=== PATIENT | male | born 1965 | race Caucasian/White ===

== ENCOUNTER 2019-06-27 22:34 | Emergency (ER) | payer MEDICAID, OTHER ==
[~2019-06-27] VITALS: Ht 167.6 cm; Wt 74.2 kg
[2019-06-27 22:53] VITALS: Ht 167.6 cm; Wt 74.2 kg
[2019-06-27] MEDS ORDERED: SOD CHLORIDE 0.9% 1,000 ML IV STA (23:49)
[2019-06-28] MEDS ORDERED: LACTATED RINGER'S 740 ML IV ONE (01:00)
[2019-06-28 03:00] VITALS: BP 136/70; PULSE 70; RESP 16
== END 2019-06-28 03:00 | disposition left against medical advice (07) ==
LOC: E/R 22:34
DX: E11.9 Type 2 diabetes mellitus without complications (principal); E86.0 Dehydration; N17.9 Acute kidney failure, unspecified
CPT/HCPCS: 36415; 80048; 81001; 82550; 82803; 82962; 83036; 83735; 84100; 84484; 85025; 93005; 99284; J7030; J7120